=== PATIENT | male | born 1970 | race Caucasian/White ===

== ENCOUNTER 2016-03-13 16:20 | Emergency (ER) | payer OTHER, MEDICAID ==
[~2016-03-13 16:20] MED LIST: DICL75 PO; PERC5TAB12 PO; ROBA750T3 PO
[2016-03-13 16:21] VITALS: BP 166/98; PULSE 80; RESP 20; TEMP 98.2; O2SAT 100
--- NOTE | 2016-03-13 16:29 | PD ---
HPI Chief Complaint: Injury Time Seen by Provider: 16:29 Travel History International Travel<30 days: No Contact w/Intl Traveler<30days: No Traveled to known affect area: No History of Present Illness HPI 45-year-old male presents to the emergency room with complaint of left lateral ankle pain after rolling his ankle while trying to move her refrigerator. He said the refrigerator shifted and his ankle rolled. Denies paresthesias, loss of sensation to affected extremity. Has not been ambulatory on the affected extremity. Reports decreased range of motion secondary to pain and swelling. Denies fever, chills, nausea, vomiting. Has not taken any medications or tried any treatments to alleviate his symptoms. Pain is aggravated with movement and palpation. No known relieving factors. Denies allergies. Denies significant past medical history. No other modifying factors or associated signs and symptoms. 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) Neurologic: No Psychiatric: No Reproductive: No Respiratory: Yes (pneumonia 97 - scarred lung) Immunizations Current: No Past Surgical History Pacemaker: No Social History Alcohol Use: Yes (occ) Tobacco Use: No (2-3 cigs per day) Substance Use: No (POSITVE TOX SCREEN (DENIES)) Allergies-Medications (Allergen,Severity, Reaction): Coded Allergies: No Known Allergies (Verified , 03/13/16) Reported Meds & Prescriptions Reported Meds & Active Scripts Active Ibuprofen 800 Mg Tab 800 Mg PO Q6HR PRN Lortab (Hydrocodone-Acetaminophen) 5-325 Mg Tab 1-2 Tab PO Q6H PRN Review of Systems Except as stated in HPI: all other systems reviewed are Neg Physical Exam Narrative GENERAL: Well-nourished, well-developed male patient, in no acute distress; afebrile, nontoxic-appearing SKIN: Warm and dry. HEAD: Atraumatic. Normocephalic. EYES: Pupils equal and round. No scleral icterus. No injection or drainage. ENT: Mucosa pink and moist. Airway patent. NECK: Trachea midline. CARDIOVASCULAR: Regular rate. RESPIRATORY: No accessory muscle use. GASTROINTESTINAL: Flat. MUSCULOSKELETAL: Left ankle with point tenderness and edema to the lateral aspect; without erythema, ecchymosis; with decreased range of motion secondary to pain and swelling; no obvious deformity. Left lower extremity is supple and non-tense with 2+ radial pedal pulses and sensory intact. No obvious deformities. No clubbing. No cyanosis. No edema. NEUROLOGICAL: Awake and alert. Oriented 3. No obvious cranial nerve deficits. Motor grossly within normal limits. Normal speech. PSYCHIATRIC: Appropriate mood and affect; insight and judgment normal. Data Data Last Documented VS Vital Signs Date Time Temp Pulse Resp B/P Pulse Ox O2 Delivery O2 Flow Rate FiO2 03/13/16 17:42 17 03/13/16 16:21 98.2 80 166/98 100 Room Air Orders Ankle, Complete ([id number]) (03/13/16 16:29) Ice/Cold Pack (03/13/16 16:29) Ibuprofen (Motrin) (03/13/16 16:30) Acetamin-Hydrocod 325-5 Mg (Hines 5-325 (03/13/16 17:45) Splint Or Brace Apply/Monitor (03/13/16 19:06) Crutches (03/13/16 19:06) Brace Fracture Walker (03/13/16 ) MDM Medical Decision Making Medical Screen Exam Complete: Yes Emergency Medical Condition: Yes Medical Record Reviewed: Yes Differential Diagnosis Fracture, dislocation, sprain Narrative Course 45-year-old male with left ankle injury. Tenderness in edema to the lateral malleolar zone. Ice pack, ibuprofen, left ankle x-ray ordered. 1705: Left ankle x-ray concludes Avulsive injury tip of the lateral malleolus. Call out to ortho. 1900: I never received acll back from ortho prior to end of shift. Oncoming ANA CRISTINA Encinas reviewed x-ray and recommended Cam walking boot. Cam walking boot sand crutches ordered. Instructed patient to follow up with orthopedics within 1 week and he verbalizes understanding and agreement of treatment plan. Lortab and ibuprofen prescribed for home. Patient is medically cleared and stable for discharge. Discussed reasons to return to the emergency department. Instructed patient to follow up with primary care provider. Patient agrees with treatment plan. The patients vital signs are stable and the patient is stable for outpatient follow-up and treatment. Patient discharged home, stable and in no acute distress. Diagnosis Primary Impression: Closed left ankle fracture Qualified Code: S82.892A - Closed left ankle fracture, initial encounter Referrals: Orthopaedic Surgeon Primary Care Physician Patient Instructions: Crutch Instructions (ED), General Instructions Departure Forms: Tests/Procedures, Work Release Enter return to work date: Mar 19, 2016 Additional Instructions: Ibuprofen or Tylenol as directed and as needed for pain and inflammation Rest, ice, compress, and elevate extremity to decrease pain and inflammation Ankle Brace for support Crutches for support Avoid aggravating activity; increase activity as tolerated Follow-up with primary care provider Follow-up with orthopedic of your choice within one week Return to the emergency department immediately with worsening symptoms Med/Other Pt SpecificInfo: Prescription(s) given Scripts Ibuprofen 800 Mg [id number] Mg PO Q6HR PRN (PAIN LESS THAN 5 ON SCALE) #30 TAB Ref 0 Prov:Raina Rios 03/13/16 Hydrocodone-Acetaminophen (Lortab)5-325 Mg Tab1-2 Tab PO Q6H PRN (PAIN GREATER THAN 5) #20 TAB Ref 0 Prov:Belgica Pham DO 03/13/16 Disposition: 01 DISCHARGE HOME Condition: Stable Raina Rios Mar 13, 2016 16:29
[2016-03-13] MEDS ORDERED: IBUPROFEN 800 MG TAB PO ONE (16:30)
--- NOTE | 2016-03-13 16:55 | RADRPT ---
EXAM DATE/TIME: 03/13/2016 16:29 [facility] COMPARISON: No previous studies available for comparison. INDICATIONS : Fall. Left ankle pain. MEDICAL HISTORY : None. SURGICAL HISTORY : None. ENCOUNTER: Initial ACUITY: 1 day PAIN SCORE: 7/10 LOCATION: Left upper extremity FINDINGS: There is an avulsive injury of the tip of the lateral malleolus with 2 small ossific fragments. The ankle mortise is normal in configuration. There is mild soft tissue swelling about the lateral aspec t of the ankle. The medial malleolus is intact. No radiopaque foreign bodies. Small retrocalcaneal spur. CONCLUSION: Avulsive injury tip of the lateral malleolus. William Chester MD on March 13, 2016 at 16:53 Board Certified Radiologist. This report was verified electronically.
[2016-03-13 17:42] VITALS: RESP 17
[2016-03-13] MEDS ORDERED: HYDR-3533 PO (17:42)
[2016-03-13] MEDS ORDERED: ACETAMINOPHEN/HYDROcodone 325 MG/5 MG TAB PO ONE (17:45)
[2016-03-13] MEDS ORDERED: IBUP800T23 PO (19:06)
== END 2016-03-13 19:34 | disposition home or self-care (01) ==
LOC: NEPB 16:20
DX: S82.892A Other fracture of left lower leg, initial encounter for closed fracture (principal); X50.1XXA Overexertion from prolonged static or awkward postures, initial encounter; Y93.89 Activity, other specified
CPT/HCPCS: 73610; 99283; E0113; L2114

== ENCOUNTER 2016-04-04 12:38 | Emergency (ER) | payer MEDICAID ==
[~2016-04-04] VITALS: Ht 182.9 cm; Wt 80.5 kg
[~2016-04-04 12:38] MED LIST changes: -DICL75 PO; +HYDR-3533 PO; +IBUP800T23 PO; -PERC5TAB12 PO; -ROBA750T3 PO
[2016-04-04 12:45] VITALS: BP 154/92; PULSE 72; RESP 16; TEMP 98.7; O2SAT 98
--- NOTE | 2016-04-04 13:03 | PD ---
HPI . cold sxs for 4 days Chief Complaint: Cold / Flu Symptoms Time Seen by Provider: 13:03 Travel History International Travel<30 days: No Contact w/Intl Traveler<30days: No Traveled to known affect area: No History of Present Illness HPI 45-year-old male with previous pneumonia in 1996 here with complaints of cough and congestion for about 3-4 days. Patient says he feels similar to when he was diagnosed with pneumonia. He tells me that he has pain with deep inspiration. He admits to productive cough with black colored phlegm. He admits to some mild nasal congestion. He denies any fever, chills, chest pain, shortness of breath, nausea, vomiting, diaphoresis, abdominal pain or GI complaints. He denies any recent travel. He is not a smoker. 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) Neurologic: No Psychiatric: No Reproductive: No Respiratory: Yes (pneumonia 97 - scarred lung) Immunizations Current: No Past Surgical History Pacemaker: No Social History Alcohol Use: Yes (occ) Tobacco Use: No (2-3 cigs per day) Substance Use: No (POSITVE TOX SCREEN (DENIES)) Allergies-Medications (Allergen,Severity, Reaction): Coded Allergies: No Known Allergies (Verified , 04/04/16) Reported Meds & Prescriptions Reported Meds & Active Scripts Active No Active Prescriptions or Reported Medications Review of Systems General / Constitutional: No: Fever Eyes: No: Visual changes HENT: Positive: Congestion, No: Headaches Cardiovascular: No: Chest Pain or Discomfort Respiratory: Positive: Cough, No: Shortness of Breath Gastrointestinal: No: Abdominal Pain Genitourinary: No: Dysuria Musculoskeletal: No: Pain Skin: No Rash Neurologic: No: Weakness Psychiatric: No: Depression Endocrine: No: Polydipsia Hematologic/Lymphatic: No: Easy Bruising Physical Exam Narrative GENERAL: AAO x 3, no acute distress, Well-nourished, well-developed patient. comfortable in bed. SKIN: Warm and dry. No visible rashes or bruising. HEAD: Normocephalic and atraumatic. EYES: No scleral icterus. No injection or drainage. EOM intact, PERRLA ENT: No nasal drainage noted. Mucous membranes pink. Airway patent. mild posterior pharynx erythema. NECK: Supple, trachea midline. No JVD. no lymphadenopathy. CARDIOVASCULAR: Regular rate and rhythm without murmurs, gallops, or rubs. RESPIRATORY: Breath sounds equal bilaterally. No accessory muscle use. + rhonchi right upper/middle. GASTROINTESTINAL: Abdomen soft, non-tender, nondistended. EXTREMITIES: No cyanosis or edema. BACK: Nontender without obvious deformity. No CVA tenderness. PSYCH: AAO x 3, normal affect. Data Data Last Documented VS Vital Signs Date Time Temp Pulse Resp B/P Pulse Ox O2 Delivery O2 Flow Rate FiO2 04/04/16 13:06 Room Air 04/04/16 12:45 98.7 72 16 154/92 98 Orders Ketorolac Inj (Toradol Inj) (04/04/16 13:15) Chest, Single Ap (04/04/16 13:08) MDM Medical Decision Making Medical Screen Exam Complete: Yes Emergency Medical Condition: Yes Medical Record Reviewed: Yes (2017 fracture ) Differential Diagnosis acute bronchitis, acute sinusitis, PNA Narrative Course 45-year-old male with previous pneumonia in 1996 here with complaints of cough and congestion for about 3-4 days. Patient says he feels similar to when he was diagnosed with pneumonia. He tells me that he has pain with deep inspiration. He admits to productive cough with black colored phlegm. He admits to some mild nasal congestion. He denies any fever, chills, chest pain, shortness of breath, nausea, vomiting, diaphoresis, abdominal pain or GI complaints. He denies any recent travel. He is not a smoker. Patient seen and examined. Exam is remarkable for rhonchi on the right side of his lungs and diminished breath sounds. He does have pain with deep inspiration. Toradol given for pain control in the ED. Chest x-ray ordered 1420 spoke with patient and explained still waiting on final read of CXR. prelim without any acute findings CXR negative for acute cardiopulmonary process. Discussed treatment for bronchitis with augmentin, prednisone, tessalon perles, and proair Patient verbalized understanding of instructions, questions were answered, and thanked me for their care. I advised them if their condition worsens, please return to the nearest emergency room for further care. Diagnosis Primary Impression: Acute bronchitis Qualified Code: J20.9 - Acute bronchitis, unspecified organism Additional Impression: Acute sinusitis Qualified Code: J01.90 - Acute sinusitis, recurrence not specified, unspecified location Patient Instructions: General Instructions Additional Instructions: Please return to emergency department if your symptoms return or worsen. Follow up with your primary care provider. Take medications as prescribed. Scripts Albuterol 8.5 GM Inh (Proair Hfa 8.5 GM Inh)90 Mcg/Act Aer2 Puff INH Q6H PRN ( SHORTNESS OF BREATH) #1 INHALER Ref 0 108 mcg/actuation Prov:Moon Conde 04/04/16 Benzonatate (Tessalon Perles)100 Mg Pdo128 Mg PO TID PRN (COUGH) #30 CAP Ref 0 Prov:Moon Conde 04/04/16 Prednisone 50 Mg Tab50 Mg PO DAILY #5 TAB Ref 0 Prov:Moon Conde 04/04/16 Amoxicillin-Clavulanate (Augmentin)875-125 mg [id number] Mg PO BID #20 TAB not for use in CrCl <30 ml/min. Prov:Moon Conde 04/04/16 Disposition: 01 DISCHARGE HOME Condition: Stable Moon Conde Apr 04, 2016 13:03
[2016-04-04] MEDS ORDERED: KETOROLAC TROMETHAMINE 60 MG/2 ML (IM) VIAL IM ONE (13:15)
--- NOTE | 2016-04-04 15:05 | RADHPO ---
EXAM DATE/TIME: 04/04/2016 13:52 [facility] COMPARISON: CHEST SINGLE AP, November 14, 2012, 19:49. INDICATIONS : Congestion. Cough. MEDICAL HISTORY : None. SURGICAL HISTORY : None. ENCOUNTER: Initial ACUITY: 4 - 6 days PAIN SCORE: 6/10 LOCATION: Bilateral chest FINDINGS: Single AP view of the chest. The lungs are clear. Cardiomediastinal silhouette within normal limits. No evidence of pleural effusion or pneumothorax. CONCLUSION: No acute cardiopulmonary disease identified. Jb Medrano MD on April 04, 2016 at 15:03 Board Certified Radiologist. This report was verified electronically.
[2016-04-04] MEDS ORDERED: ALBUAER3 INH (15:12)
[2016-04-04] MEDS ORDERED: BENZ100 PO (15:12)
[2016-04-04] MEDS ORDERED: PRED50 PO (15:12)
[2016-04-04] MEDS ORDERED: AUGM875T PO (15:12)
== END 2016-04-04 15:22 | disposition home or self-care (01) ==
LOC: PHED 12:38 → PHEFT 15:22
DX: J20.9 Acute bronchitis, unspecified (principal); J01.90 Acute sinusitis, unspecified
CPT/HCPCS: 71010; 96372; 99283; J1885

== ENCOUNTER 2016-04-17 13:57 | Emergency (ER) | payer MEDICAID ==
[~2016-04-17] VITALS: Ht 182.9 cm; Wt 80.0 kg
[~2016-04-17 13:57] MED LIST changes: +ALBUAER3 INH; +AUGM875T PO; +BENZ100 PO; -HYDR-3533 PO; -IBUP800T23 PO; +PRED50 PO
[2016-04-17 14:10] VITALS: BP 130/86; PULSE 78; RESP 16; TEMP 98.4; O2SAT 96
--- NOTE | 2016-04-17 14:47 | PD ---
HPI . right eye discomfort Chief Complaint: Eye Problems/Injury Time Seen by Provider: 14:47 Travel History International Travel<30 days: No Contact w/Intl Traveler<30days: No Traveled to known affect area: No History of Present Illness HPI 45-year-old male with no significant past history who does not wear contact lenses, here with complaints of right eye throbbing. Apparently earlier today patient felt some kind of sensation in his right eye similar to sand or grit. He tried flushing it out and now has pain. He denies any change in vision. He denies any photophobia. He has no other issues. 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) Neurologic: No Psychiatric: No Reproductive: No Respiratory: Yes (pneumonia 97 - scarred lung) Immunizations Current: No Past Surgical History Pacemaker: No Other Surgery: No Social History Alcohol Use: Yes (occ) Tobacco Use: Yes (2-3 cigs per day) Substance Use: No (denies) Allergies-Medications (Allergen,Severity, Reaction): Coded Allergies: No Known Allergies (Verified , 04/17/16) Reported Meds & Prescriptions Reported Meds & Active Scripts Active Tramadol (Tramadol HCl) 50 Mg Tab 50 Mg PO Q6H PRN Erythromycin Opth Oint 5 Mg/Gm Oint 1 Applic RIGHT EYE BID Review of Systems General / Constitutional: No: Fever Eyes: Positive: Pain (eye pain), No: Visual changes HENT: No: Headaches Cardiovascular: No: Chest Pain or Discomfort Respiratory: No: Shortness of Breath Gastrointestinal: No: Abdominal Pain Genitourinary: No: Dysuria Musculoskeletal: No: Pain Skin: No Rash Neurologic: No: Weakness Psychiatric: No: Depression Endocrine: No: Polydipsia Hematologic/Lymphatic: No: Easy Bruising Physical Exam Narrative GENERAL: AAO x 3, no acute distress, Well-nourished, well-developed patient. SKIN: Warm and dry. No visible rashes or bruising. HEAD: Normocephalic and atraumatic. EYES: No scleral icterus. No injection or drainage. EOM intact, PERRLA, + watering from right eye and erythema ENT: No nasal drainage noted. Mucous membranes pink. Airway patent. NECK: Supple, trachea midline. No JVD. CARDIOVASCULAR: Regular rate and rhythm without murmurs, gallops, or rubs. RESPIRATORY: Breath sounds equal bilaterally. No accessory muscle use. No rhonchi or rales. GASTROINTESTINAL: Abdomen soft, non-tender, nondistended. EXTREMITIES: No cyanosis or edema. BACK: Nontender without obvious deformity. No CVA tenderness. PSYCH: AAO x 3, normal affect. Data Data Last Documented VS Vital Signs Date Time Temp Pulse Resp B/P Pulse Ox O2 Delivery O2 Flow Rate FiO2 04/17/16 14:10 98.4 78 16 130/86 96 Orders Proparacaine 0.5% Opth Soln (Alcaine 0.5 (04/17/16 15:00) MDM Medical Decision Making Medical Screen Exam Complete: Yes Emergency Medical Condition: Yes Medical Record Reviewed: Yes Differential Diagnosis corneal abrasion, less likely acute angle glaucoma Narrative Course 45-year-old male with no significant past history here with complaints of right eye throbbing. Apparently earlier today patient felt some kind of sensation in his right eye similar to standing grit. He tried flushing it out and now has pain. He denies any change in vision. He denies any photophobia. He has no other issues. We discussed antibiotic chronic eye ointment usage with patient. Advised him to follow-up with ophthalmology on Tuesday. Patient verbalized understanding of instructions, questions were answered, and thanked me for their care. I advised them if their condition worsens, please return to the nearest emergency room for further care. Procedures Procedure Narrative Fluorescein staining performed and there appears to be a large corneal abrasion. Confirmed by Dr. Elliott. Proparacaine was used to locally anesthetize the right eye. Patient tolerated without incident. Diagnosis Primary Impression: Corneal abrasion Qualified Code: S05.01XA - Corneal abrasion, right, initial encounter Patient Instructions: Corneal Abrasion (ED), General Instructions, Narcotic given in the ED Additional Instructions: Please return to emergency department if your symptoms return or worsen. Follow up with your primary care provider. Take medications as prescribed.. Please see ophthalmology as we discussed. Return to the emergency department if you suddenly lose your vision or have any acute changes. Med/Other Pt SpecificInfo: Prescription(s) given Scripts Tramadol 50 Mg Tab50 Mg PO Q6H PRN (PAIN) #15 TAB Ref 0 Prov:Indio Elliott MD 04/17/16 Erythromycin Opth Oint 5 Mg/Gm Oint1 Applic RIGHT EYE BID #1 TUBE Ref 0 Prov:Indio Elliott MD 04/17/16 Disposition: 01 DISCHARGE HOME Condition: Stable Moon Coned Apr 17, 2016 14:47
[2016-04-17] MEDS ORDERED: PROPARACAINE HCL 0.5% OPHT SOLN 15 ML BTL RIGHT EYE ONE (15:00)
[2016-04-17] MEDS ORDERED: TRAM50TA PO (15:31)
[2016-04-17] MEDS ORDERED: ERYTOIN10 RIGHT EYE (15:31)
== END 2016-04-17 15:45 | disposition home or self-care (01) ==
LOC: PHEFT 13:57
DX: S05.01XA Injury of conjunctiva and corneal abrasion without foreign body, right eye, initial encounter (principal); F17.210 Nicotine dependence, cigarettes, uncomplicated
CPT/HCPCS: 99283

== ENCOUNTER 2016-05-04 13:57 | Emergency (ER) | payer MEDICAID ==
[~2016-05-04] VITALS: Ht 180.3 cm; Wt 78.6 kg
[~2016-05-04 13:57] MED LIST changes: -ALBUAER3 INH; -AUGM875T PO; -BENZ100 PO; +ERYTOIN10 RIGHT EYE; -PRED50 PO; +TRAM50TA PO
[2016-05-04 13:59] VITALS: BP 155/101; PULSE 120; RESP 18; TEMP 100.7; O2SAT 100
[2016-05-04 14:13] VITALS: BP 172/92; PULSE 102; RESP 18; TEMP 101.4; O2SAT 98
[2016-05-04] MEDS ORDERED: SODIUM CHLOR 0.9% 1000 ML INJ 1,000 ML IV SCH (14:18)
--- NOTE | 2016-05-04 14:27 | PD ---
HPI Chief Complaint: ENT Complaint Time Seen by Provider: 14:14 Travel History International Travel<30 days: No Contact w/Intl Traveler<30days: No Traveled to known affect area: No History of Present Illness HPI Patient is a 45-year-old male who presents to emergency room for evaluation of sore throat with trouble swallowing and sensation of throat tightness. Patient reports that he has had a sore throat since Tuesday night, reports that since then, he has been having troubles with swallowing. Patient reports that he has not eaten or drank anything for the past 2 days secondary to this pain. Patient reports that he feels as if his uvula is swollen. Reports that he has also been having fever/chills. 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) Neurologic: No Psychiatric: No Reproductive: No Respiratory: Yes (pneumonia 97 - scarred lung) Immunizations Current: No Influenza Vaccination: No Past Surgical History Pacemaker: No Other Surgery: No Social History Alcohol Use: Yes (occ) Tobacco Use: No Substance Use: No (denies) Allergies-Medications (Allergen,Severity, Reaction): Coded Allergies: No Known Allergies (Verified , 05/04/16) Reported Meds & Prescriptions Reported Meds & Active Scripts Active No Active Prescriptions or Reported Medications Review of Systems General / Constitutional: Positive: Fever, Chills Eyes: No: Visual changes HENT: Positive: Sore Throat, No: Headaches, Neck Stiffness Cardiovascular: No: Chest Pain or Discomfort Respiratory: No: Shortness of Breath Gastrointestinal: No: Abdominal Pain Genitourinary: No: Dysuria Musculoskeletal: No: Pain Skin: No Rash Neurologic: No: Weakness Psychiatric: No: Depression Endocrine: No: Polydipsia Hematologic/Lymphatic: No: Easy Bruising Physical Exam Narrative GENERAL: moderate distress SKIN: Warm and dry. HEAD: Atraumatic. Normocephalic. EYES: Pupils equal and round. No scleral icterus. No injection or drainage. ENT: No nasal bleeding or discharge. Mucous membranes pink and moist. Patient with swollen uvula, mild erythema to posterior pharynx, patient with pustules to right tonsils, patient tolerating airway, patient is swallowing and not drooling on exam, patient is talking in full sentences, patient with left ear: increased erythema to TM, left ear: normal exam NECK: Trachea midline. No JVD. CARDIOVASCULAR: Tachycardic. No murmur appreciated. RESPIRATORY: No accessory muscle use. Clear to auscultation. Breath sounds equal bilaterally. GASTROINTESTINAL: Abdomen soft, non-tender, nondistended. Hepatic and splenic margins not palpable. MUSCULOSKELETAL: No obvious deformities. No clubbing. No cyanosis. No edema. NEUROLOGICAL: Awake and alert. No obvious cranial nerve deficits. Motor grossly within normal limits. Normal speech. PSYCHIATRIC: Patient anxious on exam Data Data Last Documented VS Vital Signs Date Time Temp Pulse Resp B/P Pulse Ox O2 Delivery O2 Flow Rate FiO2 05/04/16 14:40 90 18 144/100 99 Room Air 05/04/16 14:13 101.4 Orders Complete Blood Count With Diff (05/04/16 14:18) Comprehensive Metabolic Panel (05/04/16 14:18) Lactic Acid Sepsis Protocol (05/04/16 14:18) Blood Culture (05/04/16 14:18) Ct Soft Tiss Neck W Iv Cont (05/04/16 ) Iv Access Insert/Monitor (05/04/16 14:18) Ecg Monitoring (05/04/16 14:18) Oximetry (05/04/16 14:18) NPO (05/04/16 14:18) Ondansetron Inj (Zofran Inj) (05/04/16 14:30) Sodium Chlor 0.9% 1000 Ml Inj (Ns 1000 M (05/04/16 14:18) Sodium Chloride 0.9% Flush (Ns Flush) (05/04/16 14:30) Electrocardiogram (05/04/16 14:18) Chest, Single Ap (05/04/16 14:18) Dexamethasone Inj (Decadron Inj) (05/04/16 14:30) Ampicillin-Sulbactam Inj (Unasyn Inj) (05/04/16 14:30) Strep Culture (Group A) (05/04/16 14:20) Group B Strep Pcr (Rapid) (05/04/16 14:20) Sodium Chlor 0.9% 1000 Ml Inj (Ns 1000 M (05/04/16 14:30) Sodium Chlor 0.9% 1000 Ml Inj (Ns 1000 M (05/04/16 14:30) Labs Laboratory Tests Test 05/04/16 14:24 White Blood Count 14.8 TH/MM3 Red Blood Count 4.65 MIL/MM3 Hemoglobin 15.1 GM/DL Hematocrit 43.4 % Mean Corpuscular Volume 93.3 FL Mean Corpuscular Hemoglobin 32.4 PG Mean Corpuscular Hemoglobin 34.7 % Concent Red Cell Distribution Width 12.3 % Platelet Count 201 TH/MM3 Mean Platelet Volume 7.4 FL Neutrophils (%) (Auto) 84.3 % Lymphocytes (%) (Auto) 6.5 % Monocytes (%) (Auto) 8.5 % Eosinophils (%) (Auto) 0.0 % Basophils (%) (Auto) 0.7 % Neutrophils # (Auto) 12.4 TH/MM3 Lymphocytes # (Auto) 1.0 TH/MM3 Monocytes # (Auto) 1.3 TH/MM3 Eosinophils # (Auto) 0.0 TH/MM3 Basophils # (Auto) 0.1 TH/MM3 CBC Comment DIFF FINAL Differential Comment Sodium Level 135 MEQ/L Potassium Level 3.2 MEQ/L Chloride Level 95 MEQ/L Calcium Level 8.8 MG/DL MDM Medical Decision Making Medical Screen Exam Complete: Yes Emergency Medical Condition: Yes Interpretation(s) EKG at 1430: NSR at 99bpm, qt/qtc: 330/398, no acute st or t wave changes Vital Signs Date Time Temp Pulse Resp B/P Pulse Ox O2 Delivery O2 Flow Rate FiO2 05/04/16 14:13 101.4 102 18 172/92 98 Room Air 05/04/16 13:59 100.7 120 18 155/101 100 Differential Diagnosis Pharyngitis, tonsillitis, parapharyngeal abscess, pneumonia, otitis media, Narrative Course Patient is a 45-year-old male who presents to emergency room with complaints of sore throat with fevers, chills, difficulty with swallowing for the past 2 days. Patient reports that symptoms began on Tuesday night, reports that he feels that this throat is more swollen and reports difficultly with swallowing at this time. Patient is maintaining his airway, no airway compromise, patient is swallowing his saliva, plan to obtain rapid strep as well as strep cultures and obtain a CT study of the soft tissues of his neck with IV contrast to evaluate for possible abscess. Patient is febrile with a temperature of 101.4, HR 102 - patient does have SIRS criteria. Lactic acid ordered as well as blood cultures. I do think this was infection is his throat and I do think the patient may have a peritonsillar abscess, IV dose of Unasyn given to patient at this time. Scripts No Active Prescriptions or Reported Meds Belgica Pham DO May 04, 2016 14:27
[2016-05-04 14:30] VITALS: O2SAT 98
[2016-05-04] MEDS ORDERED: SODIUM CHLORIDE 0.9% FLUSH 10 ML FLUSH IV FLUSH PRN (14:30)
[2016-05-04] MEDS ORDERED: DEXAMETHASONE SOD PHOS 20 MG/5 ML VIAL IV PUSH ONE (14:30)
[2016-05-04] MEDS ORDERED: AMPICILLIN-SULBACTAM INJ 3 GM in SODIUM CHLORIDE 0.9% INJ 100 ML IV ONE (14:30)
[2016-05-04] MEDS ORDERED: SODIUM CHLOR 0.9% 1000 ML INJ 1,000 ML IV ONE ×2 (14:30)
[2016-05-04] MEDS ORDERED: ONDANSETRON HCL 4 MG/2 ML VIAL IVP ONE (14:30)
[2016-05-04 14:34] LABS: AUTOMATED NEUTROPHIL # 12.4 TH/MM3 (1.8-7.7); BASOPHIL # 0.1 TH/MM3 (0-0.2); BASOPHIL % 0.7 % (0.0-2.0); HEMATOCRIT 43.4 % (39.0-51.0); HEMO FLAGS DIFF FINAL; LYMPH % 6.5 % (9.0-44.0); MEAN CELL VOLUME 93.3 FL (80.0-100.0); MEAN CORPUSCULAR HEMOGLOBIN 32.4 PG (27.0-34.0); MEAN CORPUSCULAR HGB CONC 34.7 % (32.0-36.0); MONO % 8.5 % (0.0-8.0); NEUT % 84.3 % (16.0-70.0); PLATELET COUNT 201 TH/MM3 (150-450); RED BLOOD COUNT 4.65 MIL/MM3 (4.50-5.90); RED CELL DISTRIBUTION WIDTH 12.3 % (11.6-17.2); WHITE BLOOD COUNT 14.8 TH/MM3 (4.0-11.0)
[2016-05-04 14:40] VITALS: BP 144/100; PULSE 90; RESP 18; O2SAT 99
[2016-05-04 14:42] LABS: CHLORIDE 95 MEQ/L (98-107); POTASSIUM 3.2 MEQ/L (3.5-5.1); SODIUM (NA) 135 MEQ/L (136-145)
[2016-05-04 14:46] LABS: ANION GAP 13 MEQ/L (5-15); BICARBONATE 27.2 MEQ/L (21.0-32.0); BLOOD UREA NITROGEN 12 MG/DL (7-18)
[2016-05-04 14:49] LABS: ALT (GPT) 24 U/L (12-78); AST (GOT) 20 U/L (15-37); GLOMERULAR FILTRATION RATE 81 ML/MIN (>89)
[2016-05-04 14:51] LABS: TOTAL BILIRUBIN ADULT 0.8 MG/DL (0.2-1.0)
[2016-05-04 14:52] LABS: ALKALINE PHOSPHATASE 124 U/L (45-117)
--- NOTE | 2016-05-04 15:18 | RADHPO ---
EXAM DATE/TIME: 05/04/2016 14:29 [facility] COMPARISON: CHEST SINGLE AP, April 04, 2016, 13:52. INDICATIONS : Difficulty breathing; neck swelling. MEDICAL HISTORY : None. SURGICAL HISTORY : None. ENCOUNTER: Initial ACUITY: 1 day PAIN SCORE: 0/10 LOCATION: Bilateral chest FINDINGS: A single view of the chest demonstrates the lungs to be symmetrically aerated without evidence of mas s, infiltrate or effusion. The cardiomediastinal contours are unremarkable. Osseous structures are intact. CONCLUSION: No acute disease. Wilmer Peacock MD on May 04, 2016 at 15:16 Board Certified Radiologist. This report was verified electronically.
[2016-05-04] MEDS ORDERED: IOHEXOL 350 MG/ML 10 ML VIAL (for RAD DIAG) IV ONE (15:45)
--- NOTE | 2016-05-04 16:45 | RADHPO ---
EXAM DATE/TIME: 05/04/2016 15:36 [facility] COMPARISON: No previous studies available for comparison. INDICATIONS : Neck pain and swelling with difficulty swallowing for two days. IV CONTRAST: 75 cc Omnipaque 350 (iohexol) IV RADIATION DOSE: 12.05 CTDIvol (mGy) MEDICAL HISTORY : None SURGICAL HISTORY : None. ENCOUNTER: Initial ACUITY: 2 days PAIN SCALE: 10/10 LOCATION: Bilateral neck TECHNIQUE: Volumetric scanning of the neck was performed. Using automated exposure control and adjustment of th e mA and/or kV according to patient size, radiation dose was kept as low as reasonably achievable to obtain optimal diagnostic quality images. FINDINGS: NASOPHARYNX: The nasopharyngeal airway has a normal configuration. No mucosal thickening or mass is seen. OROPHARYNX: The intrinsic muscles of the tongue are symmetric. The tonsillar pillars are intact. The prevertebr al soft tissues are not thickened. LARYNX: The supraglottic, glottic, and infraglottic structures are intact. PARAPHARYNGEAL: The parapharyngeal space is intact. SALIVARY GLANDS: The parotid and submandibular glands are intact. LYMPH NODES: Borderline prominent lymph nodes in the bilateral cervical chains measuring upwards of 1.7 cm in diam eter. THYROID: Homogeneous enhancement without evidence of nodule. BONES: Unremarkable. MISCELLANEOUS: Chronic sinusitis in the ethmoid air cells and bilateral maxillary antra, left greater than right. Consuelo ng apices are clear. There is asymmetric prominence of the sternocleidomastoid muscles with the right measuring 1.2 and the left 1.8 cm in depth. CONCLUSION: 1. Borderline prominent lymph nodes in the bilateral cervical chains measuring up to 1.7 cm in diamet er. Etiology is uncertain. No identifiable abscess. 2. There is chronic sinusitis in the bilateral ethmoid air cells and the maxillary antra, left greate r than right. 3. Asymmetric prominence of the left sternocleidomastoid muscle belly of uncertain etiology. No perim uscular inflammatory changes to suggest a myositis. Zak Martin MD on May 04, 2016 at 16:28 Board Certified Radiologist. This report was verified electronically.
[2016-05-04 17:02] VITALS: BP 165/90; PULSE 96; RESP 20; O2SAT 96
[2016-05-04 17:28] VITALS: BP 159/93; PULSE 90; RESP 18; TEMP 99.4; O2SAT 95
--- NOTE | 2016-05-04 17:30 | PD ---
Physical Exam Date Seen by Provider: May 04, 2016 Time Seen by Provider: 17:28 Narrative This 45-year-old male had presented with sore throat and trouble swallowing. He has not eaten for several days. He was seen by Dr. Pham. A CT scan does not show any airway compromise. He has received an initial dose of Unasyn. He is positive for strep. He has been hydrated. He'll be released with prescriptions for Augmentin and Lortab with instructions to force fluids. Data Data Last Documented VS Vital Signs Date Time Temp Pulse Resp B/P Pulse Ox O2 Delivery O2 Flow Rate FiO2 05/04/16 17:28 99.4 90 18 159/93 95 Room Air Orders Complete Blood Count With Diff (05/04/16 14:18) Comprehensive Metabolic Panel (05/04/16 14:18) Lactic Acid Sepsis Protocol (05/04/16 14:18) Blood Culture (05/04/16 14:18) Ct Soft Tiss Neck W Iv Cont (05/04/16 ) Iv Access Insert/Monitor (05/04/16 14:18) Ecg Monitoring (05/04/16 14:18) Oximetry (05/04/16 14:18) NPO (05/04/16 14:18) Ondansetron Inj (Zofran Inj) (05/04/16 14:30) Sodium Chlor 0.9% 1000 Ml Inj (Ns 1000 M (05/04/16 14:18) Sodium Chloride 0.9% Flush (Ns Flush) (05/04/16 14:30) Electrocardiogram (05/04/16 14:18) Chest, Single Ap (05/04/16 14:18) Dexamethasone Inj (Decadron Inj) (05/04/16 14:30) Ampicillin-Sulbactam Inj (Unasyn Inj) (05/04/16 14:30) Strep Culture (Group A) (05/04/16 14:20) Sodium Chlor 0.9% 1000 Ml Inj (Ns 1000 M (05/04/16 14:30) Sodium Chlor 0.9% 1000 Ml Inj (Ns 1000 M (05/04/16 14:30) Influenzae A/B Antigen (05/04/16 14:45) Group A Rapid Strep Screen (05/04/16 14:55) Iohexol 350 Inj (Omnipaque 350 Inj) (05/04/16 15:45) Labs Laboratory Tests Test 05/04/16 14:24 White Blood Count 14.8 TH/MM3 Red Blood Count 4.65 MIL/MM3 Hemoglobin 15.1 GM/DL Hematocrit 43.4 % Mean Corpuscular Volume 93.3 FL Mean Corpuscular Hemoglobin 32.4 PG Mean Corpuscular Hemoglobin 34.7 % Concent Red Cell Distribution Width 12.3 % Platelet Count 201 TH/MM3 Mean Platelet Volume 7.4 FL Neutrophils (%) (Auto) 84.3 % Lymphocytes (%) (Auto) 6.5 % Monocytes (%) (Auto) 8.5 % Eosinophils (%) (Auto) 0.0 % Basophils (%) (Auto) 0.7 % Neutrophils # (Auto) 12.4 TH/MM3 Lymphocytes # (Auto) 1.0 TH/MM3 Monocytes # (Auto) 1.3 TH/MM3 Eosinophils # (Auto) 0.0 TH/MM3 Basophils # (Auto) 0.1 TH/MM3 CBC Comment DIFF FINAL Differential Comment Sodium Level 135 MEQ/L Potassium Level 3.2 MEQ/L Chloride Level 95 MEQ/L Carbon Dioxide Level 27.2 MEQ/L Anion Gap 13 MEQ/L Blood Urea Nitrogen 12 MG/DL Creatinine 1.00 MG/DL Estimat Glomerular Filtration 81 ML/MIN Rate Random Glucose 102 MG/DL Lactic Acid Level 1.0 mmol/L Calcium Level 8.8 MG/DL Total Bilirubin 0.8 MG/DL Aspartate Amino Transf 20 U/L (AST/SGOT) Alanine Aminotransferase 24 U/L (ALT/SGPT) Alkaline Phosphatase 124 U/L Total Protein 8.4 GM/DL Albumin 3.9 GM/DL [facility] Medical Record Reviewed: Yes Supervised Visit with RITIKA: No Differential Diagnosis Differential includes peritonsillar abscess, strep pharyngitis Narrative Course CT is negative for abscess. Strep screen is positive. He had an IV fluids, Decadron and Unasyn Diagnosis Primary Impression: Streptococcal pharyngitis Scripts Hydrocodone-Acetaminophen (Lortab)5-325 Mg Tab1-2 Tab PO Q6H PRN (PAIN) #20 TAB Ref 0 Prov:Johnathan Patel MD 05/04/16 Amoxicillin-Clavulanate (Augmentin)500-125 mg [id number] Mg PO Q8H 7 Days Ref 0 Prov:Johnathan Patel MD 05/04/16 Disposition: 01 DISCHARGE HOME Condition: Stable Johnathan Patel MD May 04, 2016 17:30
[2016-05-04] MEDS ORDERED: HYDR-3533 PO (17:31)
[2016-05-04] MEDS ORDERED: AUGM500T7 PO (17:31)
--- NOTE | 2016-05-05 11:05 | EKG ---
Date Performed: 05/04/2016 Time Performed: 14:30:50 PTAGE: 45 years EKG: Sinus rhythm Normal ECG PREVIOUS TRACING : 11/14/2012 23.47 DOCTOR: Tj Holliday Interpretating Date/Time 05/05/2016 11:03:46
== END 2016-05-04 17:43 | disposition home or self-care (01) ==
LOC: PHED 13:57
DX: J02.0 Streptococcal pharyngitis (principal); B95.0 Streptococcus, group A, as the cause of diseases classified elsewhere
CPT/HCPCS: 70491; 71010; 80053; 83605; 85025; 87040; 87804; 87880; 93005; 96361; 96365; 96375; 99284; J0295; J1100; J2405; J7030; Q9967

== ENCOUNTER 2017-04-27 17:11 | Emergency (ER) | payer MEDICAID ==
[~2017-04-27] VITALS: Ht 182.9 cm; Wt 80.0 kg
[~2017-04-27 17:11] MED LIST changes: +AUGM500T7 PO; -ERYTOIN10 RIGHT EYE; +HYDR-3533 PO; -TRAM50TA PO
[2017-04-27 17:15] VITALS: BP 177/99; PULSE 116; RESP 16; TEMP 98.6; O2SAT 97
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
[2017-04-27] MEDS ORDERED: ACETAMINOPHEN/HYDROcodone 325 MG/5 MG TAB PO ONE (18:00)
[2017-04-27] MEDS ORDERED: IBUP1TAB7 PO (18:06)
== END 2017-04-27 18:50 | disposition home or self-care (01) ==
LOC: PHEFT 17:11
DX: S62.512A Displaced fracture of proximal phalanx of left thumb, initial encounter for closed fracture (principal); V19.9XXA Pedal cyclist (driver) (passenger) injured in unspecified traffic accident, initial encounter; Y93.55 Activity, bike riding
CPT/HCPCS: 73130; 99283; L3808